=== PATIENT | female | born 1950 | race Caucasian/White ===

== ENCOUNTER 2016-09-04 07:40 | Outpatient (CLI) | payer MEDICAID ==
[~2016-09-04] VITALS: Ht 175.3 cm; Wt 72.7 kg
--- NOTE | ~2016-09-04 | HEMODYNAMI ---
PATIENT:KODY SAUCEDO MEDICAL RECORD: [id number] : 54 LOCATION:[facility] ADMISSION DATE: 09/04/16 Generatedon:09/04/20169:52 Patient name: KODY SAUCEDO Patient #: [id number] SSN: DO B: 1950 Date of study: 09/04/2016 Page: Of Hemodynamic Procedure Report Patient Data Patient Demographics Procedure consent was obtained First Name: KODY Gender: Female Last Name: SHERYL : 1950 Patient #: [id number] Age: 66 year(s) Race: Additional ID: [id number] Contact details Address: [address] [place] [address] State: [place] City: [facility] Zip code: [address] Past Medical History Allergies Allergen Reaction Date Comments Reported Other allergy 12/09/2014 codeine Admission Admission Data Admission Date: 09/04/2016 Admission Time: 7:40 Procedure Procedure Types Cath Procedure Peripheral Cath Diagnostic Procedure Cath Peripheral Gcycg-Aqbjwie-Kgz-Off Procedure Description Procedure Date Procedure Date: 09/04/2016 Procedure Start Time: 9:24 Procedure End Time: 9:52 Procedure Staff Name Function Angle Fitzgerald MD Performing Physician Chetan Esteves RT Scrub Nguyen Contreras RN Nurse Helga Jones RT Monitor Procedure Data Cath Procedure Fluoroscopy Diagnostic fluoroscopy Total fluoroscopy Time: 7.3 time: 7.3 min min Diagnostic fluoroscopy Total fluoroscopy dose: 223 dose: 223 mGy mGy Contrast Material Contrast Material Type Amount (ml) Isovue 300 68 Entry Location Entry Primary Successful Side Size Upsize 1 Upsize Entry Closure S uccessful Closure Location (Fr) (Fr) 2 (Fr) Remarks Device Remarks Femoral Left 5 Fr 6 Fr 6 Fr Left Exoseal artery Mid-Length Short Iliac occluded. Femoral Right 5 Fr Exoseal artery Estimated blood loss: 10 ml Diagnostic catheters Device Type Used For End Catheter Placement Cordis Tempo 5Fr UF Abdominal catheter aortogram with runoff Diagnostic Infinity 5Fr Lower extremity 3DRC catheter arteriography Cordis Tempo 5Fr UF Abdominal catheter aortogram with runoff Procedure Medications Medication Administration Route Dosage Oxygen NC 2 l/min Lidocaine 2% added to field 20 Heparin Flush Bag added to field 2 bags (1000units/500ml NS) Versed I.V. 1 mg Fentanyl I.V. 50 mcg Versed I.V. 1 mg Fentanyl I.V. 50 mcg Versed I.V. 1 mg Fentanyl I.V. 50 mcg Versed I.V. 1 mg Fentanyl I.V. 50 mcg Hemodynamics Rest Heart Rate: 57 (bpm) Snapshots Pre Cath Intra NCS Post Cath Vital Signs Time Heart Resp SPO2 etCO2 OK1efiq NIBP (mmHg) Rhythm Pain Sedation Rate (ipm) (%) (mmHg) (mmHg) Status Level (bpm) 9:07:18 60 17 94 0 0 169/91(126) NSR 0 (11) 10(A) , No pain 9:11:34 53 16 95 0 0 182/96(154) NSR 0 (11) 10(A) , No pain 9:15:56 54 16 99 0 0 168/94(139) NSR 0 (11) 10(A) , No pain 9:20:14 56 16 99 0 0 141/87(104) NSR 0 (11) 10(A) , No pain 9:24:28 54 16 98 0 0 120/75(94) NSR 0 (11) 10(A) , No pain 9:28:34 55 16 95 0 0 123/77(100) NSR 0 (11) 9(A) , No pain 9:32:44 59 16 96 0 0 113/66(82) NSR 0 (11) 9(A) , No pain 9:36:47 59 16 95 0 0 117/70(92) NSR 0 (11) 9(A) , No pain 9:40:55 53 17 96 0 0 117/65(83) NSR 0 (11) 9(A) , No pain 9:45:01 53 17 95 0 0 126/70(101) NSR 0 (11) 9(A) , No pain 9:49:09 51 8 94 0 0 118/72(92) NSR 0 (11) 9(A) , No pain Medications Time Medication Route Dose Verified Delivered Reason Notes Effect iveness by by 9:14:15 Oxygen NC 2 Angel Nguyen Per l/min Amilcar Contreras RN physician 9:14:24 Lidocaine 2% added 20ml Angel Ortiz used for to vial Amilcar Fitzgerald MD procedure field 9:14:32 Heparin Flush added 2 Angel Angel used for Bag to bags Amilcar Fitzgerald MD procedure (1000units/500ml field NS) 9:14:48 Versed I.V. 1 mg Angel Nguyen for Amilcar Contreras RN sedation 9:14:55 Fentanyl I.V. 50 Angel Nguyen for mcg Amilcar Contreras RN sedation 9:18:21 Versed I.V. 1 mg Angel Nguyen for Amilcar Contreras RN sedation 9:18:23 Fentanyl I.V. 50 Angel Nguyen for mcg Amilcar Contreras RN sedation 9:21:39 Versed I.V. 1 mg Angel Nguyen for Amilcar Contreras RN sedation 9:21:41 Fentanyl I.V. 50 Angel Nguyen for mcg Amilcar Contreras RN sedation 9:36:16 Versed I.V. 1 mg Angel Nguyen for Amilcar Contreras RN sedation 9:36:20 Fentanyl I.V. 50 Angel Nguyen for mcg Amilcar Contreras RN sedation Procedure Log Time Note 8:57:34 Helga Counts RT(R) sent for patient. Start room use. 8:57:35 Time tracking: Regular hours 8:57:39 Plan of Care:Hemodynamics will remain stable., Cardiac rhythm will remain stable., Comfort level will be maintained., Respiratory function will remain adequate., Patient/ family verbilizes understanding of procedure., Procedure tolerated without complication., Recovers from procedure without complications.. 9:06:04 Vital chart was started 9:06:35 Patient received from Pre/Post Procedure Room to CCL 1 Alert and oriented. Tansferred to table in Supine position. 9:06:41 Warm blankets applied, and matilde hugger turned on for patient comfort. 9:06:41 Correct patient and procedure confirmed by team. 9:06:43 Signed procedure consent form obtained from patient. 9:06:44 ECG and BP/O2 sat monitors applied to patient. 9:11:23 Baseline sample Acquired. 9:11:24 Full Disclosure recording started 9:11:31 H&P Date Dictated: 08/27/2016 Within 30 days and on chart., H&P Addendum completed by physician on day of procedure. (MUST COMPLETE FOR ALL OUTPATIENTS). 9:11:35 Pre-procedure instructions explained to patient. 9:11:35 Pre-op teaching completed and patient verbalized understanding. 9:11:37 Family in patients room. 9:11:45 Patient NPO since Midnight. 9:12:01 Is the patient allergic to Iodine/contrast media? No. 9:12:04 Is patient on blood thinner?Yes 9:12:06 ACC The patient was administered the following blood thiners within the last 24 hours: ACCPlavix 9:12:17 Patient diabetic? Yes. 9:12:21 Previous problem with sedation/anesthesia? No ? 9:12:22 Snore? Yes 9:12:23 Sleep apnea? No 9:12:24 Deviated septum? No 9:12:25 Opens mouth fully? Yes 9:12:26 Sticks out tongue? Yes 9:12:27 Airway obstruction? Yes COPD 9:12:29 Dentures? No ? 9:12:33 Pre procedure: right dorsailis pedis pulse 1+ Palpable, but thready & weak; easily obliterated 9:12:37 Pre procedure: left dorsailis pedis pulse 2+ Normal; easily identifiable; not easily obliterated 9:12:41 Patient pain scale 0/10 ?. 9:12:47 IV patent on arrival in left hand with 0.9% NaCl at KVO. 9:12:51 Lab results completed and on chart. 9:12:57 Bilateral groins area was prepped with chlora-prep and draped in sterile fashion 9:12:58 Alarms reviewed by R. N. 9:12:58 Sharps counted by scrub and verified by R.N. 9:13:00 Final Timeout: patient, procedure, and site verified with staff and physician. All members of the team are in agreement. 9:13:02 Left groin site verified by team. 9:13:12 Physical assessment completed. ASA score P 2 - A patient with mild systemic disease as per Angel Fitzgerald MD. 9:13:16 Sedation plan: IV Moderate Sedation Versed, Fentanyl 9:14:15 Oxygen 2 l/min NC was administered by Nguyen Contreras RN; Per physician; 9:14:24 Lidocaine 2% 20ml vial added to field was administered by Agnel Fitzgerald MD; used for procedure; 9:14:32 Heparin Flush Bag (1000units/500ml NS) 2 bags added to field was administered by Angel Fitzgerald MD; used for procedure; 9:14:48 Versed 1 mg I.V. was administered by Nguyen Contreras RN; for sedation; 9:14:55 Fentanyl 50 mcg I.V. was administered by Nguyen Contreras RN; for sedation; 9:15:27 If on Metformin: Last Dose? 09/02/2016 9:15:53 If diabetic: On Metformin? Yes 9:16:20 Use device set Acist 9:16:21 Acist Syringe opened to sterile field. 9:16:21 Acist Hand Control opened to sterile field. 9:16:22 Acist Manifold opened to sterile field. 9:16:59 Terumo 5Fr [place] Sheath opened to sterile field. 9:17:00 Bag Decanter opened to sterile field. 9:17:00 St Jose David 260cm J .035 wire opened to sterile field. 9:17:01 Medline Cath Pack opened to sterile field. 9:18:21 Versed 1 mg I.V. was administered by Nguyen Contreras RN; for sedation; 9:18:23 Fentanyl 50 mcg I.V. was administered by Nguyen Contreras RN; for sedation; 9:21:39 Versed 1 mg I.V. was administered by Nguyen Contreras RN; for sedation; 9:21:41 Fentanyl 50 mcg I.V. was administered by Nguyen Contreras RN; for sedation; 9:22:50 Procedure started. 9:23:12 Zero performed for pressure channel P1 9:24:44 Local anesthetic to left femerol artery with Lidocaine 2% by Angel Fitzgerald MD.INITIAL ACCESS ONLY 9:25:26 A 5 Fr sheath was inserted into the Left Femoral arteryLeft Iliac occluded. 9:25:50 A Cordis Tempo 5Fr UF catheter was advanced over the wire and used for Abdominal aortogram with runoff.Unable advance. Occluded left iliac. 9:25:57 SS glide wire advanced. 9:26:11 Terumo ANGLED SS 260CM glide wire opened to sterile field. 9:26:48 Terumo TORQUE DEVICE PLASTIC .038 opened to sterile field. 9:27:00 Catheter exchanged over wire. 9:28:10 A Diagnostic Infinity 5Fr 3DRC catheter was advanced over the wire and used for Lower extremity arteriography.Left. Left Iliac occluded 9:28:45 Catheter removed. 9:28:46 Wire removed. 9:28:52 Terumo 5Fr [place] Sheath opened to sterile field. 9:28:58 Local anesthetic to right femoral artery with Lidocaine 2% by Angel Fitzgerald MD.ADDITIONAL ACCESS 9:30:00 A 5 Fr sheath was inserted into the Right Femoral artery 9:31:28 A Cordis Tempo 5Fr UF catheter was advanced over the wire and used for Abdominal aortogram with runoff. 9:32:16 SS glide wire advanced. 9:33:54 Cordis 6Fr Brite Tip 35cm Sheath opened to sterile field. 9:34:09 Terumo 6Fr [place] Sheath opened to sterile field. 9:34:22 Wire removed. 9:34:37 SS glide via Left wire advanced. 9:35:20 Sheath upsized to a 6 Fr Mid-Length. 9:36:07 Terumo 5FR STRAIGHT 100CM glide catheter opened to sterile field. 9:36:16 Versed 1 mg I.V. was administered by Nguyen Contreras RN; for sedation; 9:36:20 Fentanyl 50 mcg I.V. was administered by Nguyen Contreras RN; for sedation; 9:36:55 Glidecatheter advanced. 9:38:08 Glidewire removed from left and advanced up right. 9:40:50 Wire removed. Intervention aborted unable to cross lesion. 9:41:49 Sheath upsized to a 6 Fr Short. 9:42:03 Sheath removed intact; hemostasis achieved with Exoseal to the Left Femoral artery. 9:42:15 Sheath removed intact; hemostasis achieved with Exoseal to the Right Femoral artery. 9:42:27 Cordis 5Fr Exoseal opened to sterile field. 9:42:32 Procedure ended.(Physican Out) 9:42:58 Tegaderm 4 x 4 opened to sterile field. 9:48:02 Fluoroscopy time 07.30 minutes. 9:48:07 Fluoroscopy dose: 223 mGy 9:48:07 Flurop Dose total: 223 9:48:10 Contrast amount:Isovue 300 68ml. 9:48:12 Sharps counted by scrub and verified by R.N. 9:48:13 Insertion/operative site no bleeding no hematoma. 9:48:16 Post-op/insertion site Right Femoral artery dressed using a 4 x 4 and Tegaderm. 9:48:19 Post-op/insertion site Left Femoral artery dressed using a 4 x 4 and Tegaderm. 9:48:22 Post right femoral artery:stable, clean and dry 9:48:28 Post left femerol artery:stable, clean and dry 9:48:32 Post Procedure Pulses reassessed and unchanged 9:48:34 Post-procedure physical assessment completed. ASA score P 2 - A patient with mild systemic disease as per Angel Fitzgerald MD. 9:48:36 Post procedure rhythm: unchanged. 9:48:39 Estimated blood loss: 10 ml 9:48:41 Post procedure instruction explained to patient.Patient verbalizes understanding. 9:48:41 Patient needs reinforcement of post procedure teaching. 9:48:52 See physician's report for complete and final results. 9:50:32 Tegaderm 4 x 4 opened to sterile field. 9:50:33 Cordis 6Fr Exoseal opened to sterile field. 9:50:49 Procedure and supply charges have been captured, reviewed, submitted and are correct. 9:50:53 Vital chart was stopped 9:50:55 Report given to Pre/Post Procedure Room. 9:50:58 Patient transfered to Pre/Post Procedure Room with Stretcher. 9:52:25 Procedure ended. 9:52:25 Full Disclosure recording stopped 9:52:27 End room use (Document Last) 9:52:28 End room use (Document Last) Device Usage Item Name Manufacture Quantity Catalog Hospital Part Current Minimal Lo t# / Number Charge Number Stock Stock Serial# Code Acist Acist 1 06424 238090 026317 [id number] 20 Syringe [employer] Inc Acist Hand Acist 1 25001 548263 090243 697770 5 Control Medical [employer] Inc Acist Acist 1 06520 175886 791993 781928 5 Manifold Medical [employer] Inc Terumo 5Fr Terumo 2 PFM378 363427 328304 922616 40 [place] Sheath Bag Microtek 1 2002S 376511 55235 000524 [address] [facility] 1 500482 457021 844558 355576 30 260cm J .035 wire Medline Cardinal 1 [id number] 642192 45071 886981 5 Cath Pack Health Cordis Cardinal 1 [id number] 060236 935461 174671 10 Tempo 5Fr Health UF catheter Terumo Terumo 1 OK2486 079694 463577 156527 [address] SS 260CM glide wire Terumo Linden 1 TD01 409367 912625 105229 5 TORQUE Scientific DEVICE PLASTIC .038 Diagnostic Cardinal 1 [id number] 693887 771156 845155 9 Infinity Health 5Fr 3DRC catheter Cordis 6Fr Cardinal 1 [id number] 157088 008992 924827 1 Brite Tip Health 35cm Sheath Terumo 6Fr Terumo 1 RLH539 412384 080245 178344 40 [place] Sheath Terumo 5FR Terumo 1 CG506 074732 12170 221916 4 STRAIGHT 100CM glide catheter Cordis 5Fr Cardinal 1 EX500 105696 581006 796739 10 Exoseal Health Tegaderm 4 3M 2 1626W 687781 749608 144383 5 x 4 Cordis 6Fr Cardinal 1 EX600 603535 123574 024392 10 Exoseal Health Signature Audit Rutledge Stage Time Signature Unsigned Intra-Procedure 09/04/2016 Helga 9:52:36 AM Counts RT(R) Signatures Monitor : Helga Signature : Counts RT Date : Time : [facility] [address] [place] [address]
[~2016-09-04 07:40] MED LIST: DESERYL100 MG PO; EFFEXOR100 MG PO; GLUCOPHAGE500 MG PO; METOPROLOL TART50 MG PO; NIFEDIPINE ER60 MG PO; PLAVIX75 MG PO; PRAVACHOL40 MG PO; PRINIVIL20 MG PO; SYNTHROID150 MCG PO; TOPROL XL50 MG PO
[2016-09-04 07:56] VITALS: BP 166/92; Ht 175.3 cm; Wt 72.7 kg
[2016-09-04 08:14] LABS: BASOPHILS 0.8 % (0.0-2.0); EOSINOPHILS 4.8 % (0-7); HEMATOCRIT 41.2 % (36.0-48.0); HEMOGLOBIN 13.7 g/dL (12-16); MCH 29.8 pg (26.0-34.0); MCHC 33.3 g/dL (31.0-37.0); MCV 89.8 fL (80.0-100.0); MEAN PLATELET VOLUME 10.6 fL (7.4-10.4); MONOCYTES 9.1 % (2-11); NEUTROPHILS 58.3 % (40-80); PLATELET COUNT 317 10x3/uL (130-400); RBC 4.59 10x6/uL (4.00-5.40); RDW 15.9 % (11.5-14.5); WBC 9.8 10x3/uL (4.8-10.8)
[2016-09-04 08:38] LABS: CALC OSMOLALITY 280 mosm/kg (275-300); CALCIUM 9.4 mg/dL (8.5-10.1); CARBON DIOXIDE 23.9 mmol/L (21.0-32.0); CHLORIDE - SERUM 103 mmol/L (98-107); CREATININE - SERUM 0.8 mg/dL (0.6-1.3); GLUCOSE 167 mg/dL (74-106); POTASSIUM - SERUM 4.4 mmol/L (3.5-5.1); SODIUM 139 mmol/L (136-145); UREA NITROGEN 11 mg/dL (7-18); eGFR NON AFRICAN AMERICAN 76 mL/min (90-120)
--- NOTE | 2016-09-04 10:15 | NUR ---
RESTING IN BED WITH EYES CLOSED. VSS. ROOM AIR, NO RESP DISTRESS NOTED. RIGHT AND LEFT GROIN DRSG CDI, NO BLEEDING OR HEMATOMA NOTED. INSTRUCTED PT TO KEEP HEAD FLAT ON PILLOW AND BOTH LEGS STRAIGHT.
--- NOTE | 2016-09-04 10:45 | NUR ---
RESTING QUIETLY. NO C/O AT THIS TIME. VITAL SIGNS STABLE. BILATERAL GROIN DRSGS CDI. DAUGHTER AT BEDSIDE, CALL LIGHT WITHIN REACH.
--- NOTE | 2016-09-04 11:00 | NUR ---
WATER GIVEN, NO C/O NAUSEA OR CHEST PAIN. VSS. BILATERAL GROINS CDI. WILL CONTINUE TO MONITOR.
--- NOTE | 2016-09-04 11:30 | NUR ---
SANDWICH TRAY GIVEN. NO C/O AT THIS TIME. WILL CONTINUE TO MONITOR.
--- NOTE | 2016-09-04 12:40 | NUR ---
LEFT FA PIV D/C'D WITH CATHETER INTACT. UP TO GET DRESSED.
--- NOTE | 2016-09-04 13:00 | NUR ---
DISCHARGE INSTRUCTIONS GIVEN, VERBALIZED UNDERSTANDING. UP TO RESTROOM TO VOID.
--- NOTE | 2016-09-04 13:16 | NUR ---
TAKEN OUT VIA WHEELCHAIR BY CATH DIESEL LOCOMOTIVE ENGINEER. LEFT FACILITY WITH FAMILY MEMBER AND ALL PERSONAL BELONGINGS.
--- NOTE | 2016-09-10 14:38 | OP ---
PATIENT NAME: KODY SAUCEDO MEDICAL RECORD: [id number] :54 LOCATION:D.CAT ADMISSION DATE: SURGEON: CARMELA GAUTAM MD DATE OF OPERATION: 09/04/2016 PROCEDURES: 1. Aortofemoral runoff. 2. Abdominal aortography. INDICATIONS: Claudication and peripheral vascular disease. PROCEDURE IN DETAIL: After informed consent was obtained and after detailed explanation of risks, benefits as well as alternative therapies, the patient elected to proceed with angiogram. The right and left femoral areas were prepped and draped in normal sterile fashion. Both arteries were cannulated via modified Seldinger technique with placement of 5 and 6-Greenlandic sheath. All catheters exchanged through these sheaths. FINDINGS: The abdominal aortography was performed. The catheter was pulled down for aortofemoral runoff. Abdominal aortography reveals wide patency of the previously placed renal stent. No renal artery stenosis. On the left renal artery, there is an abdominal aortic aneurysm that is infrarenal aneurysm, appears to be greater than 4 cm. This will be better delineated by CT or ultrasound. RIGHT SIDE: 1. The common internal and external iliacs have mild irregularities, but no flow-limiting stenosis. 2. Femoral system: The common superficial and deep femoral have mild irregularities, but no flow-limiting stenosis. 3. Popliteal and infrapopliteal vessels are widely patent giving good 3-vessel runoff to the foot. LEFT SIDE: 1. The left common iliac is totally occluded. The external iliac is widely patent. The internal iliac is widely patent. 2. Femoral system: The common superficial and deep femoral have mild irregularities, but no flow-limiting stenosis. 3. Popliteal and infrapopliteal vessels are widely patent. Attempted LOZENGE MAKER of the left iliac, no wire, glide, catheter combination with calcified total occlusion of the left iliac. OVERALL IMPRESSION: Total occlusion of the left iliac, inability to cross with a wire for transcatheter revascularization. Continue medical management of the peripheral vascular disease and peripheral risk factors. If the patient wishes revascularization, this will have to be surgical. TRANSINT:[id number] Voice Confirmation ID: [id number] DOCUMENT ID: [id number] OPERATIVE REPORT [id number] KODY SAUCEDO CARMELA GAUTAM MD at 1438 CC: [id number] DICTATION DATE: 09/04/16 0947 PEGA DEVELOPER: 09/04/16 1021 DEP CLI 09/04/16 [facility] [address] [place] [address]
== END 2016-09-04 13:15 | disposition home or self-care (01) ==
LOC: D.CATH 07:40
PROVIDERS: Internal Medicine Interventional Cardiology
DX: I70.212 Atherosclerosis of native arteries of extremities with intermittent claudication, left leg (principal); I70.92 Chronic total occlusion of artery of the extremities; I72.2 Aneurysm of renal artery

== ENCOUNTER → 2016-09-20 08:23 | Outpatient (CLI) | payer MEDICAID ==
[2016-09-04 07:56] VITALS: BMI 23.6
== END | disposition home or self-care (01) ==
LOC: D.CT 08:23
DX: I71.4 Abdominal aortic aneurysm, without rupture (principal)

== ENCOUNTER → 2016-10-17 13:27 | Outpatient (CLI) | payer MEDICAID ==
[2016-09-04 07:56] VITALS: BMI 23.6
== END | disposition home or self-care (01) ==
LOC: D.RT 13:27
DX: I65.23 Occlusion and stenosis of bilateral carotid arteries (principal); R06.02 Shortness of breath

== ENCOUNTER 2016-10-25 05:00 | Inpatient (IN) | payer MEDICAID ==
[2016-10-24 11:00] LABS: BASOPHILS 1.1 % (0-2); EOSINOPHILS 3.3 % (0-7); HEMATOCRIT 41.5 % (36.0-48.0); HEMOGLOBIN 13.5 g/dL (12-16); IMMATURE GRANULOCYTES 0.7 % (0-5); LYMPHOCYTES 23.2 % (15-50); MCH 29.7 pg (26.0-34.0); MCHC 32.5 g/dL (31.0-37.0); MCV 91.4 fL (80.0-100.0); MEAN PLATELET VOLUME 10.5 fL (7.4-10.4); MONOCYTES 7.4 % (2-11); NEUTROPHILS 64.3 % (40-80); PLATELET COUNT 357 10x3/uL (130-400); RBC 4.54 10x6/uL (4.00-5.40); RDW 14.3 % (11.5-14.5); WBC 10.7 10x3/uL (4.8-10.8)
[2016-10-24 11:08] LABS: APTT 29.9 SECONDS (22.8-39.4); INR 0.91 (0.85-1.17); PROTIME 12.1 SECONDS (11.6-15.0)
[2016-10-24 11:11] LABS: APPEARANCE HAZY (CLEAR); BILIRUBIN NEGATIVE (NEGATIVE); COLOR YELLOW (YELLOW); GLUCOSE 50 mg/dL (NEGATIVE); KETONE NEGATIVE (NEGATIVE); LEUKOCYTE ESTERASE TRACE (NEGATIVE); NITRITE NEGATIVE (NEGATIVE); PROTEIN TRACE mg/dL (NEGATIVE); UROBILINOGEN NORMAL (NORMAL)
[2016-10-24 11:12] LABS: BACTERIA FEW /hpf (NONE SEEN); EPITHELIAL CELLS 0-5 /hpf (0-5); RED CELLS - URINE 0-5 /hpf (0-5); WHITE CELLS - URINE 0-5 /hpf (0-5)
[2016-10-24 11:16] LABS: ALBUMIN 3.3 g/dL (3.4-5.0); ANION GAP 11.4 mmol/L (8-16); BILIRUBIN - TOTAL 0.18 mg/dL (0.2-1.3); CALCIUM 9.3 mg/dL (8.5-10.1); CARBON DIOXIDE 29.8 mmol/L (21.0-32.0); CREATININE - SERUM 0.9 mg/dL (0.6-1.3); POTASSIUM - SERUM 3.2 mmol/L (3.5-5.1); PROTEIN - SERUM 7.4 g/dL (6.4-8.2)
[2016-10-25] VITALS (48 sets, daily range): BP systolic 119–155; BP diastolic 60–82; BMI 24.5; BMI 25.9
[~2016-10-25] VITALS: Ht 172.7 cm; Wt 78.3 kg
[~2016-10-25 05:00] MED LIST changes: +EFFEXOR XR150 MG PO; -EFFEXOR100 MG PO; +PROTONIX40 MG PO
[2016-10-25] MEDS ORDERED: INHALER (05:42)
--- NOTE | 2016-10-25 12:23 | NUR ---
RECIEVED TO ROOM CV06 VIA BED. ALERT C/O BLADDER PAIN. LEFT SUBCLAVIAN CVL WITH NITRO INFUSING AT 10 CC AND BICARB DRIP AT 150 CC. CRITICORE BASHIR WITH DARK URINE NOTED. BILATERAL GROIN DRESSINGS CLEAN DRY AND INTACT. PEDAL PULSES PRESENT. PT DAUGHTER AT BEDSIDE. ALL QUESTIONS ANSWERED PER DR. GARCIA. B/O SUPPOSITORY ORDERED.
--- NOTE | 2016-10-25 12:36 | NUR ---
B/O SUPPOSITORY PER ORDER.
[2016-10-25 13:33] LABS: POTASSIUM - SERUM 2.7 mmol/L (3.5-5.1)
--- NOTE | 2016-10-25 16:34 | NUR ---
ASSISTED PT WITH MEAL.
--- NOTE | 2016-10-25 19:15 | NUR ---
REPORT RECVD. CARE ASSUMED. INITIAL ASSMNT COMPLETED. SEE FLOWSHEET FOR ALL FINDINGS. AWAKE AND AOX4. PERRLA. MAEW. FOLLOWS COMMANDS. RESP SHALLOW. OCC PROD COUGH. SCANT WHEEZES. DIM IN BASES PER AUSC OF LUNG CARO, SPO2 97% ON O2 AT 2 LPM NC. FAIR EFFORT WITH INCENTIVE. SR ON THE MONITOR. LEFT RADIAL A-LINE ZEROED AND BALANCED. GOOD WAVE FORM SEEN. FYPERTENSIVE.NITRO GTT TITRATION AT MAX. CLEVIPREX GTT TITRATION INITIATED. SYS B/P WITHIN PARAMETERS ON CLEVIPREX. NTG GTT DISCONTINUED. BILATERAL GROIN SITES CDI. SOFT. NO HEMATOMA PRESENT. PEDAL PULSES PALP. DENIES DISCOMFORT. ABD SOFT, BSA X4. TOLERATING REG DIABETIC DIET AND PO FLUIDS. F/C PATENT WITH CHRISTINE UOP TO CRITICORE. AFEBRILE. ASSISTED TO REPOSITION FOR COMFORT. HOB UP. C/L IN REACH. CONT CURRENT POC.
--- NOTE | 2016-10-25 21:25 | NUR ---
S MEDS GIVEN,. HS SNACK PROVIDED. VSS. CLEVIPREX GTT TITRATION IN PROGRESS FOR HTN., FAMILY AT BEDSIDE. UPDATE GIVEN. NO DISTRESS SEEN. HOB UP. C/L IN REACH. CONT CURRENT POC.
--- NOTE | 2016-10-25 22:30 | NUR ---
ABGS DRAWN AND RESULTED. CA+ LEVEL TREATED PER ORDERS.
--- NOTE | 2016-10-25 23:15 | NUR ---
REASSESSMENT COMPLETED. SEE FLOWSHEET FOR ALL FINDINGS. AWAKE AND AOX4. PERRLA. MAEW. FOLLOWS COMMANDS. RESP SHALLOW. OCC PROD COUGH. SCANT WHEEZES. DIM IN BASES PER AUSC OF LUNG CARO, SPO2 97% ON O2 AT 2 LPM NC. FAIR EFFORT WITH INCENTIVE. SR ON THE MONITOR. LEFT RADIAL A-LINE INTACT WITH GOOD WAVE FORM SEEN. CLEVIPREX GTT TITRATION IN USE. SYS B/P WITHIN PARAMETERS BILATERAL GROIN SITES CDI. SOFT. NO HEMATOMA. PEDAL PULSES PALP. DENIES DISCOMFORT. ABD SOFT, BSA X4. TOLERATING REG DIABETIC DIET AND PO FLUIDS. F/C PATENT WITH CHRISTINE UOP TO CRITICORE. AFEBRILE. ASSISTED TO REPOSITION FOR COMFORT. HOB UP. C/L IN REACH. CONT CURRENT POC.
[2016-10-26] VITALS (36 sets, daily range): BP systolic 118–157; BP diastolic 54–94; Ht 172.7 cm; Wt 78.3 kg
--- NOTE | 2016-10-26 01:10 | NUR ---
RESTING WITH NO DISTRESS. VSS. SR ON THE MONITOR. DENIES NEEDS. HOB UP. C/L IN REACH. CONT CURRENT POC.
--- NOTE | 2016-10-26 03:15 | NUR ---
REASSESSMENT COMPLETED. SEE FLOWSHEET FOR ALL FINDINGS. RESTING. AOX4. PERRLA. MAEW. FOLLOWS COMMANDS. RESP SHALLOW. OCC PROD COUGH. SCANT WHEEZES. DIM IN BASES PER AUSC OF LUNG CARO, SPO2 97% ON O2 AT 2 LPM NC. FAIR EFFORT WITH INCENTIVE. SR ON THE MONITOR. LEFT RADIAL A-LINE INTACT WITH GOOD WAVE FORM SEEN. SYS B/P WITHIN PARAMETERS BILATERAL GROIN SITES CDI. SOFT. NO HEMATOMA. PEDAL PULSES PALP. DENIES DISCOMFORT. ABD SOFT, BSA X4. TOLERATING REG DIABETIC DIET AND PO FLUIDS. F/C PATENT WITH CHRISTINE UOP TO CRITICORE. AFEBRILE. ASSISTED TO REPOSITION FOR COMFORT. HOB UP. C/L IN REACH. CONT CURRENT POC.
--- NOTE | 2016-10-26 05:20 | NUR ---
RESTING WITH NO DISTRESS. VSS. SR ON THE MONITOR. DENIES DISCOMFORT. ASSISTED TO REPOSITION. SYS B/P WITHIN PARAMETERS. HOB UP. C/L IN REACH. CONT CURRENT POC.
[2016-10-26 06:23] LABS: MCH 29.4 pg (26.0-34.0); MCHC 32.4 g/dL (31.0-37.0); MCV 90.8 fL (80.0-100.0); MEAN PLATELET VOLUME 10.6 fL (7.4-10.4); RDW 14.2 % (11.5-14.5); WBC 8.7 10x3/uL (4.8-10.8)
[2016-10-26 06:28] LABS: HEMATOCRIT 29.6 % (36.0-48.0); HEMOGLOBIN 9.6 g/dL (12-16); RBC 3.26 10x6/uL (4.00-5.40)
[2016-10-26 06:31] LABS: ANION GAP 8.2 mmol/L (8-16); CALCIUM 7.6 mg/dL (8.5-10.1); CARBON DIOXIDE 28.8 mmol/L (21.0-32.0); CREATININE - SERUM 1.1 mg/dL (0.6-1.3)
--- NOTE | 2016-10-26 11:29 | OP ---
PATIENT NAME: KODY SAUCEDO MEDICAL RECORD: [id number] :54 LOCATION:D.TONY DDeliaCV06 ADMISSION DATE:10/25/16 SURGEON: KRIS GARCIA MD DATE OF OPERATION: 10/25/2016 SURGEON: Kris Garcia MD ANESTHESIA: General, Dr. Daley. OPERATION PERFORMED: 1. Endovascular stent repair of abdominal aortic aneurysm and right iliac artery aneurysm. 2. Femoral-femoral bypass. 1. Open femoral exposure bilaterally, 25019-26 Catheter sheath placement into the aorta, nonselective, 20349. 2. Endo AAA repair with AUI device 54125. Rad S&I, subtended at Endo AAA repair, 02549-19. 3. Extension prosthesis initial vessel, 47360 subtended at Rad S&I extension prosthesis, 69499-32. 4. Femoral-femoral bypass utilizing a 6-mm prosthetic graft, 88394. PREOPERATIVE DIAGNOSIS: Abdominal aortic aneurysm. Thoracic aortic aneurysm. 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 POSTOPERATIVE DIAGNOSIS: Abdominal aortic aneurysm. Thoracic aortic aneurysm. 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 INDICATION FOR OPERATION: Severe claudication, left lower extremity. FINDINGS OF THE OPERATION: Fluoro time was 6 minutes 30 seconds contrast was 90mL. Aortogram demonstrates a bilobed abdominal aortic aneurysm as well as right common iliac artery aneurysm. There is total excision of the left common iliac artery. Post-endovascular stent repair demonstrates good exclusion of the aneurysm. DESCRIPTION OF PROCEDURE: After informed consent, adequate preoperative medication evaluation, the patient was brought to the operating room, placed on the table in the supine position. After induction of general endotracheal anesthesia and application of appropriate monitoring devices, the chest, abdomen and both groins and legs were prepped and draped in a sterile field, utilizing Betadine scrub, alcohol, and Betadine solution. A Betadine-impregnated drape was also used. A curvilinear incision was made over the superficial femoral, common femoral and the inguinal ligament and dissection carried down the fascia. Hemostasis maintained with electrocautery. The inguinal ligament was elevated and the preperitoneal space dissected and dissection was then carried out along the common femoral artery, superficial femoral artery and profunda femoral artery. These were surrounded with vessel loops. Attention was then turned toward the right side. An oblique incision was made above the inguinal ligament. Dissection carried down the fascia. Hemostasis maintained with electrocautery. The inguinal ligament was elevated and the common femorals and distal external iliac artery were dissected free of surrounding structures. The patient was given a calculated dose of heparin utilizing a micropuncture OPERATIVE REPORT [id number] KODY SAUCEDO technique. The distal iliac artery was punctured and a 4-Austrian sheath placed was exchanged for a 5-Austrian sheath. A pigtail catheter was then placed in the aorta at the renal arteries and then aortogram was obtained and measurements made and exchange was then made for a stiff wire and exchange made for the AUI device. The renal arteries were identified and the device was deployed just below the renal arteries and the suprarenal fixation released. Attention was then turned toward the external iliac and hypogastric arteries and an aortogram demonstrated the bifurcation utilizing an extension of the device was placed in the AUI device and extended to the bifurcation of the hypogastric and external iliac arteries. A Reliant balloon was then used to dilate the graft and conformed to the vessel. An aortogram was performed that demonstrated good position of the graft. Good inflow to the right groin without type 1 endoleaks. The wires, sheaths and catheters were removed. The ACT was maintained above 200 seconds. A 6 mm graft was placed through the preperitoneal space and retrorectus muscle position. The puncture site for the aneurysm repair was then extended distally and the 6 mm graft oblique to perform a 2-1/2cm anastomosis. The left side was then isolated and the superficial femoral artery was opened and the arteriotomy extended on to the common femoral artery utilizing the Lawrence scissors. There was open flow to the profunda and superficial femoral arteries. An end-to-side anastomosis was fashioned utilizing running 6-0 Prolene suture. All maneuvers removed, trapped air was performed. The clamps were removed sequentially. There was excellent flow through all 4 distal vessels in the distal left iliac artery was ligated above the femoral-femoral graft to prevent retrograde perfusion of the aneurysm sac. The patient was then given a calculated dose of protamine. Hemostasis was achieved. The wounds were irrigated with copious amounts of antibiotic solution and normal saline. Instrument counts and sponge counts were correct times 2. The wound was closed in layers utilizing 2-0 Vicryl on deep subcutaneous tissue and 3-0 Vicryl on superficial subcutaneous tissue and skin approximated with skin harvinder. Sterile dressings were applied. The patient tolerated the procedure well and was transferred to cardiovascular recovery in satisfactory condition. TRANSINT:[id number] Voice Confirmation ID: [id number] DOCUMENT ID: [id number] KRIS GARCIA MD at 1129 CC: [id number] DICTATION DATE: 10/25/16 1144 MOLECULAR SPECTROSCOPIST: 10/26/16 0007 ADM IN [id number] [place] [address]
--- NOTE | 2016-10-26 11:30 | NUR ---
BASHIR CATH AND A-LINE DC'D PER ORDER. MANUAL PRESSURE APPLIED TO LEFT RADIAL TIMES 10 MINUTES. CLEAR DRESSING APPLIED. PT INSTRUCTED TO REPORT S/SX OF BLEEDING OR SWELLING. P.T. AT BEDSIDE FOR EVAL.
--- NOTE | 2016-10-26 12:15 | NUR ---
PT VOIDED POST BASHIR DC.
--- NOTE | 2016-10-26 13:10 | NUR ---
SET UP FOR BATH. CLEAN LINENS PROVIDED.
--- NOTE | 2016-10-26 16:10 | NUR ---
BACK TO BED.
--- NOTE | 2016-10-26 17:06 | NUR ---
UP TO CHAIR FOR DINNER.
--- NOTE | 2016-10-26 19:15 | NUR ---
REPORT RECVD. CARE ASSUMED. INITIAL ASSMNT COMPLETED. SEE FLOWSHEET FOR ALL FINDINGS. AWAKE AND AOX4. VSS. RESP EVEN AND UNLABORED. LUNGS WITH SCANT EXP WHEEZES. DIM IN BASES. OCC PROD COUGH NOTED. PULLS 1500 ON INCENTIVE WITH GOOD EFFORT SEEN. SR ON THE MONITOR. ALL PERIPHERAL PULSES PALP. RIGHT AND LEFT GROIN SITES CDI. SOFT WITH NO HEMATOMA. DENIES DISCOMFORT. ABD SOFT, BSA X4. VOIDING NO DIFF. UP TO BATHROOM WITH ASSIST TO DISCONNECT FROM ICU MONITORING ONLY. INDEPENDENT WITH CARES AND REPOSITIONING. PO FLUIDS AND SNACKS PROVIDED. HOB UP. C/L IN REACH. CONT CURRENT POC.
--- NOTE | 2016-10-26 21:15 | NUR ---
HS MEDS GIVEN. FSBS WITH SLIDING SCALE INSULIN SQ. UP TO BR TO VOID NO DIFF. VSS. PRN PAIN MED PROVIDED. HOB UP. C/L IN REACH. CONT CURRENT POC.
--- NOTE | 2016-10-26 23:15 | NUR ---
REASSESSMENT COMPLETED. SEE FLOWSHEET FOR ALL FINDINGS. RESTING. AOX4. VSS. RESP EVEN AND UNLABORED. LUNGS WITH SCANT EXP WHEEZES. DIM IN BASES. OCC PROD COUGH NOTED. PULLS 1500 ON INCENTIVE WITH G EFFORT SEEN. SR ON THE MONITOR. ALL PERIPHERAL PULSES PALP. RIGHT AND LEFT GROIN SITES CDI. SOFT WITH NO HEMATOMA. DENIES DISCOMFORT. ABD SOFT, BSA X4 VOIDING NO DIFF. UP TO BATHROOM WITH ASSIST TO DISCONNECT FROM ICU MONITORI ONLY. INDEPENDENT WITH CARES AND REPOSITIONING. PO FLUIDS AND SNACKS PROVIDED. HOB UP. C/L IN REACH. CONT CURRENT POC.
[2016-10-27] VITALS (13 sets, daily range): BP systolic 118–161; BP diastolic 51–85
--- NOTE | 2016-10-27 01:10 | NUR ---
RESTING WITH NO DUSTRESS. VSS. SR ON THE MONITOR. HOB UP. C/L IN REACH. CONT CURRENT POC.
--- NOTE | 2016-10-27 02:14 | NUR ---
UP TO BATHROOM MINIMAL ASSIST. VOIDED NO DIFF. BACK TO BED.POSITIONED SELF FOR COMFORT. PRN NORCO GIVEN FOR PAIN CONTROL. HOB UP. C/L IN REACH. CONT CURRENT POC.
--- NOTE | 2016-10-27 05:11 | NUR ---
RESTING WITH EYES CLOSED. NO DISTRESS. VSS. SR ON THE MONITOR. SYS B/P WITHIN PARAMETERS. NO NEEDS VOICED. HOB UP. C/L IN REACH. CONT POC.
[2016-10-27 06:19] LABS: BASOPHILS 0.4 % (0-2); EOSINOPHILS 1.7 % (0-7); HEMATOCRIT 29.5 % (36.0-48.0); HEMOGLOBIN 9.6 g/dL (12-16); IMMATURE GRANULOCYTES 0.5 % (0-5); LYMPHOCYTES 15.1 % (15-50); MCH 29.4 pg (26.0-34.0); MCHC 32.5 g/dL (31.0-37.0); MCV 90.5 fL (80.0-100.0); MEAN PLATELET VOLUME 10.5 fL (7.4-10.4); MONOCYTES 10.9 % (2-11); NEUTROPHILS 71.4 % (40-80); PLATELET COUNT 228 10x3/uL (130-400); RBC 3.26 10x6/uL (4.00-5.40); RDW 14.1 % (11.5-14.5); WBC 10.4 10x3/uL (4.8-10.8)
[2016-10-27 06:33] LABS: ANION GAP 7.2 mmol/L (8-16); CALCIUM 8.1 mg/dL (8.5-10.1); CARBON DIOXIDE 30.5 mmol/L (21.0-32.0); CREATININE - SERUM 0.9 mg/dL (0.6-1.3)
[2016-10-27 06:35] LABS: POTASSIUM - SERUM 2.7 mmol/L (3.5-5.1)
--- NOTE | 2016-10-27 07:12 | NUR ---
REPORTED K+ LEVEL TO DR GARCIA. ORDERS RECVD FOR 40 MEQ KCL RIDER OVER 4 HOURS AND START PO 20 MEQ K+ BID. REPORTED TO ONCOMING RN.
[2016-10-27] MEDS ORDERED: HYDROCODONE-APA1 TAB PO (13:36)
--- NOTE | 2016-10-27 14:30 | NUR ---
CV[facility] DC'D CATH FULLY INTACT PER ORDER. MANUAL PRESSURE APPLIED TIMES 5 MINUTES. CLEAR DRESSING APPLIED. PT INSTRUCTED TO CALL FOR BLEEDING OR SWELLING. PT INSTRUCTED TO REMAIN FLAT UNTIL FURTHER INSTRUCTION.
--- NOTE | 2016-10-27 14:55 | NUR ---
NO BLEEDING OR SWELLING NOTED. DC INSTRUCTIONS REVIEWED WITH PT. NO CURRENT QUESTIONS. AWAITING RIDE HOME FOR CLOTHES TO DC.
--- NOTE | 2016-10-27 16:50 | NUR ---
REVIEWED DC INSTRUCTIONS WITH PT AGAIN. VERBALIZES UNDERSTANDING. NO QUESTIONS. PT DC'D HOME WITH DAUGHTER AND WRITTEN RX.
== END 2016-10-27 16:50 | disposition home or self-care (01) | DRG 269 ==
LOC: D.CVICU 05:00 → D.SDCHOLD 05:00 → D.CVICU 11:09
PROVIDERS: Anesthesiology; Emergency Medicine; ADMIT Internal Medicine Cardiovascular Disease
PROC: 041L4ZJ Bypass Left Femoral Artery to Left Femoral Artery, Percutaneous Endoscopic Approach (ICD-10-PCS; 2016-10-25)
PROC: 04V03DZ Restriction of Abdominal Aorta with Intraluminal Device, Percutaneous Approach (ICD-10-PCS; principal; 2016-10-25 07:30)
PROC: 04VC3DZ Restriction of Right Common Iliac Artery with Intraluminal Device, Percutaneous Approach (ICD-10-PCS; 2016-10-25 07:30)
DX: I71.4 Abdominal aortic aneurysm, without rupture (principal); I74.5 Embolism and thrombosis of iliac artery; I73.9 Peripheral vascular disease, unspecified; E11.9 Type 2 diabetes mellitus without complications; I25.10 Atherosclerotic heart disease of native coronary artery without angina pectoris; I72.3 Aneurysm of iliac artery; J44.9 Chronic obstructive pulmonary disease, unspecified; I71.2 Thoracic aortic aneurysm, without rupture

== ENCOUNTER → 2017-10-27 12:07 | Outpatient (CLI) | payer MEDICARE, MEDICAID ==
[2016-10-26 10:22] VITALS: BMI 27.0
[~2017-10-27 12:07] MED LIST changes: +HYDROCODONE-APA1 TAB PO; +INHALER
== END | disposition home or self-care (01) ==
LOC: D.CT 12:07
DX: I71.4 Abdominal aortic aneurysm, without rupture (principal)

== ENCOUNTER → 2017-12-09 09:34 | Outpatient (CLI) | payer MEDICARE, MEDICAID ==
[2016-10-26 10:22] VITALS: BMI 27.0
[~2017-12-09 09:34] MED LIST changes: +ASPIRIN81 MG PO; +DULERA 200 MCG8.8 GM INH; +EFFEXOR37.5 MG PO
== END | disposition home or self-care (01) ==
LOC: D.CT 09:34
DX: I71.2 Thoracic aortic aneurysm, without rupture (principal)

== ENCOUNTER 2018-01-06 05:07 | Day surgery (SDC) | payer MEDICARE, MEDICAID ==
[2018-01-05 10:13] LABS: HEMATOCRIT 37.5 % (36.0-48.0); HEMOGLOBIN 12.2 g/dL (12-16); MCH 29.3 pg (26.0-34.0); MCHC 32.5 g/dL (31.0-37.0); MCV 89.9 fL (80.0-100.0); RBC 4.17 10x6/uL (4.00-5.40); RDW 14.6 % (11.5-14.5); WBC 9.6 10x3/uL (4.8-10.8)
[2018-01-05 10:24] LABS: APTT 31.3 SECONDS (22.8-39.4); INR 0.93 (0.85-1.17); PROTIME 12.1 SECONDS (11.6-15.0)
[2018-01-05 11:06] LABS: ALBUMIN 3.7 g/dL (3.4-5.0); ANION GAP 13.7 mmol/L (8-16); BILIRUBIN - TOTAL 0.28 mg/dL (0.2-1.3); CALCIUM 9.4 mg/dL (8.5-10.1); CARBON DIOXIDE 28.6 mmol/L (21.0-32.0); CREATININE - SERUM 0.9 mg/dL (0.6-1.3); POTASSIUM - SERUM 3.3 mmol/L (3.5-5.1); PROTEIN - SERUM 7.6 g/dL (6.4-8.2)
[2018-01-05 11:10] LABS: APPEARANCE CLEAR (CLEAR); BILIRUBIN NEGATIVE (NEGATIVE); COLOR YELLOW (YELLOW); GLUCOSE NEGATIVE (NEGATIVE); KETONE NEGATIVE (NEGATIVE); NITRITE NEGATIVE (NEGATIVE); PROTEIN NEGATIVE (NEGATIVE); UROBILINOGEN NORMAL (NORMAL)
[2018-01-05 11:11] LABS: BACTERIA MODERATE /hpf (NONE SEEN); EPITHELIAL CELLS 0-5 /hpf (0-5); MUCUS <1+ /lpf (NONE SEEN); WHITE CELLS - URINE 0-5 /hpf (0-5)
[~2018-01-06] VITALS: Ht 172.7 cm; Wt 75.0 kg
[2018-01-06] VITALS (31 sets, daily range): BP systolic 107–163; BP diastolic 57–91; Ht 172.7 cm; Wt 75.0 kg
--- NOTE | ~2018-01-06 | OP ---
PATIENT NAME: KODY SAUCEDO MEDICAL RECORD: [id number] :54 LOCATION:D.[facility]ERLY [facility] ADMISSION DATE: SURGEON: OTIS RIVERA MD DATE OF OPERATION: 01/06/2018 SURGEON: Otis Rivera MD ANESTHESIA: General, Dr. Daley. OPERATION PERFORMED: Angioplasty and stenting of the right external iliac artery. PREOPERATIVE DIAGNOSIS: Severe right external iliac artery stenosis. POSTOPERATIVE DIAGNOSIS: Severe right external iliac artery stenosis. INDICATION FOR OPERATION: Right external iliac artery stenosis supplying the right lower extremity and left lower extremity via a femoral-femoral bypass. FINDINGS AT OPERATION: Utilizing ultrasound imaging, the right external iliac artery and common femoral artery were identified with the graft leading off to the left femoral artery. Right external iliac arteriogram demonstrates severe stenosis at the takeoff of the right external iliac artery. ESTIMATED BLOOD LOSS: Less than 10 mL. FLUOROSCOPY TIME: 2 minutes. CONTRAST: 20 mL. DESCRIPTION OF PROCEDURE: After informed consent, adequate preoperative medication evaluation, the patient was brought to the operating room, placed on the table in the supine position. After induction of general endotracheal anesthesia and application of appropriate monitoring devices, the abdomen and both legs were prepped and draped in sterile field, utilizing Betadine scrub, alcohol, and Betadine solution. Betadine-impregnated drape was also used. Utilizing the Doppler ultrasound, the right external iliac, common femoral, and femoral-femoral graft were visualized as well as the left common femoral artery. Utilizing the ultrasound, a direct puncture was made of the right common femoral and external iliac junction. Utilizing a micropuncture technique, wire confirmation was made. Utilizing fluoroscopy, exchange was made for a 5-Marshallese sheath. The patient was given a calculated dose of heparin. The exchange made for a 5-Marshallese sheath. A retrograde external arteriogram was performed, demonstrating the severe stenosis at the takeoff of the external iliac artery. An Amplatz wire was placed in the thoracic aorta and exchange made for a 7-Marshallese sheath. An iCast Atrium covered stent was then maneuvered into position just distal to the hypogastric artery and the balloon expandable stent deployed. The catheter was removed. A repeat arteriogram demonstrated excellent flow through this area with good flow and no residual stenosis. The wires and catheters were removed and an 8-Marshallese Angio-Seal was then deployed in the right groin, which was not completely hemostatic. The patient was given a calculated dose of heparin and manual pressure held for 22 minutes. A FemoStop was then placed at a low inflation rate. The patient tolerated the procedure OPERATIVE REPORT [id number] KODY SAUCEDO well and was transferred to the CV ICU in satisfactory condition. TRANSINT:[id number] Voice Confirmation ID: [id number] DOCUMENT ID: [id number] OTIS RIVERA MD at 1256 CC: [id number] DICTATION DATE: 01/06/18 0945 EAR FLAP BINDER: 01/06/18 1238 [facility] 01/07/18 [id number] [place] [address]
--- NOTE | ~2018-01-06 | HP ---
PATIENT: KODY SAUCEDO MEDICAL RECORD: [id number] ACCOUNT: [id number] LOCATION:M[place]IE : 52 ADMISSION DATE: 01/06/18 HISTORY AND PHYSICAL EXAMINATION NameKODY SAUCEDO (67yo, F) ID# [id number]. Date/Time12/11/2017 11:88VLCZA1952Service Dept.NPP_[place] [facility] ClinicProviderEDELIZABETH GARCIA MDInsuranceMed Primary: [facility] (MEDICARE REPLACEMENT/ADVANTAGE - PPO) Insurance # : [id number] Employer Name : [employer] Secondary: [place] Insurance # : [id number] Employer Name : UNKNOWN Prescription: [employer] - Member is eligible. Prescription: ORX - Member is eligible. Chief Complaint Followup: Iliac artery occlusion S/P EVS AAA, R ILIAC ANEURYSM; FEM-FEM BYPASS 10/25/16 6 WEEK WITH CTA THORACIC AORTA Patient's Pharmacies [facility] ([facility]): [address], [place] [address], , Vitals BP:138/74 sitting R arm 12/11/2017 12:11 pmHR:72/REG 12/11/2017 12:12 pmHt:5 ft 8 in 12/11/2017 12:08 pmWt:164 lbs 12/11/2017 12:10 pmBMI:24.9 12/11/2017 12:10 pmAllergies Reviewed Allergies NKDAMedications Reviewed Medications amoxicillin 500 mg /16/18 filledPRESCRIPTION SOLUTIONSARIPiprazole 5 mg tablet Take 1 tablet(s) every day by oral route.10/09/16 enteredKathy Wilsonazithromycin 250 mg sfrrin20/14/16 filledCaremarkchlorhexidine gluconate 0.12 % nxcnaibaj08/16/18 filledPRESCRIPTION SOLUTIONSclopidogrel 75 mg tablet Take 1 tablet(s) every day by oral route.10/22/17 filledPRESCRIPTION SOLUTIONSHYDROcodone 10 mg-acetaminophen 325 mg /15/17 filledCaremarkHYDROcodone 5 mg-acetaminophen 325 mg wadyca19/14/17 filledCaremarkHYDROcodone 7.5 mg-acetaminophen 325 mg tktzaa77/16/18 filledPRESCRIPTION SOLUTIONSIophen C-NR 10 mg-100 mg/5 mL oral debeve33/14/16 filledCaremarkKlor-Con 10 mEq tablet,extended release Take 1 tablet(s) every day by oral route.10/09/16 [facility] Wilsonlevothyroxine 175 mcg rertgp47/06/18 filledPRESCRIPTION SOLUTIONSLORazepam 1 mg alircs74/09/18 filledPRESCRIPTION SOLUTIONSmetFORMIN 500 mg ptbfai87/09/18 filledPRESCRIPTION SOLUTIONSmetoprolol tartrate 50 mg tablet Take 1 tablet(s) twice a day by oral route.09/19/17 filledPRESCRIPTION SOLUTIONSnicotine 14 mg/24 hr daily transdermal patch08/05/16 filledCaremarknicotine 21 mg/24 hr daily transdermal patch12/04/16 filledCaremarkNIFEdipine ER 60 mg tablet,extended release 24 hr Take 1 tablet(s) every day by oral route.03/31/17 filledCaremarkNIFEdipine ER 90 mg tablet,extended release 24 hr10/22/17 filledPRESCRIPTION SOLUTIONSNitro-Dur 0.2 mg/hr transdermal 24 hour patch Apply 1 patch(es) every day by transdermal route.10/09/16 [facility] WilsonOsmoPrep 1.5 gram (1.102-0.398) tablet Take 4 tablet(s) by oral route as directed.10/21/16 filledCaremarkpantoprazole 40 HISTORY AND PHYSICAL [id number] KODY SAUCEDOOLL mg tablet,delayed release Take 1 tablet(s) every day by oral route.03/31/17 filledCaremarkpolyethylene glycol 3350 17 gram/dose oral /27/16 filledCaremarkpotassium chloride ER 10 mEq tablet,extended release(part/cryst)09/11/16 filledCaremarkpravastatin 40 mg tablet Take 1 tablet(s) every day by oral route.11/22/16 filledCaremarkQUEtiapine 50 mg /08/16 filledCaremarkSklice 0.5 % uupnnw52/02/17 filledCaremarktraZODone 100 mg yzsthn51/21/17 filledCaremarkvenlafaxine 37.5 mg nwncah28/09/18 filledPRESCRIPTION SOLUTIONSvenlafaxine ER 150 mg capsule,extended release 24 hr Take 1 capsule(s) every day by oral route.10/22/17 filledPRESCRIPTION SOLUTIONSVaccines Reviewed Vaccines Some vaccines listed in Document: #[id number] could not be added to this patient's chart. Please review this document and add these vaccines to the patient's chart manually as needed. Problems Reviewed Problems Intermittent claudication due to atherosclerosis of [place] artery of limb - Onset: 10/30/2017 Aneurysm of iliac artery Abdominal aortic aneurysm Iliac artery occlusion Peripheral vascular disease - Onset: 10/09/2016 Family History Reviewed Family History Father- No current problems or disabilityMother- No current problems or disabilitySocial History Reviewed Social History Cardiology Family history of heart disease?: N Smoking Status: Current every day smoker Smoker (06/19 PPD) High Cholesterol: Y High blood pressure: Y Overweight: N Obese: N Diabetes: Y General stress level: High Alcohol intake: Occasional Diet: Regular Marital status: Tobacco-years of use: 15 Surgical History Reviewed Surgical History Other - 10/25/2016 - EVS AAA repair/ Right iliac artery repair; fem to fem bypass 10/25/16 10/23/16 no PA required for 10/25/16 sx per Akanksha @ [facility]. Ref #: [id number]. 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 HPI Peripheral Vascular Disease Reported by patient. Severity: not limiting Associated Symptoms: no weakness; no numbness; no paresthesias; no skin discoloration; no fever endovascular stent repair with abdominal aortic aneurysm saccular iliac artery aneurysm Claudication about 1 block ROS Patient reports no fever, no night sweats, no significant weight gain, no significant weight loss, and no exercise intolerance; claudication one block. She reports no chest pain, no arm pain on exertion, no shortness of breath when walking, no shortness of breath when lying down, no palpitations, and no known heart murmur; history of myocardial infarction. She reports muscle aches and muscle weakness but reports no arthralgias/joint pain, no back pain, and no swelling in the extremities; no claudication lower extremity. She reports no dry eyes, no irritation, and no vision change. She reports no difficulty hearing and no ear pain. She reports no frequent nosebleeds and no nose/sinus problems. She reports no sore throat, no bleeding gums, no snoring, no dry mouth, no mouth ulcers, no oral abnormalities, and no teeth problems. She reports no jugular vein distension and n o swollen glands. She reports no cough, no wheezing, no shortness of breath, and no coughing up blood. She reports no abdominal pain, no vomiting, normal appetite, no diarrhea, not vomiting blood, no nausea, and no constipation. She reports no incontinenc e , no difficulty urinating, no hematuria, and no increased frequency. She reports no abnormal mole, no jaundice, and no rashes. She reports no loss of consciousness, no weakness, no numbness, no seizures, no dizziness, and no headaches. She reports no depr ession, no sleep disturbances, feeling safe in relationship, and no alcohol abuse. She reports no fatigue. She reports no swollen glands and no bruising. She reports no runny nose, no sinus pressure, no itching, no hives, and no frequent sneezing. ROS as noted in the HPI Physical Exam Patient is a 67-year-old female. Constitutional: General Appearance well nourished and developed and healthy-appearing. Level of Distress NAD. Ambulation ambulating normally. Cardiovascular: Apical Impulse not displaced or no thrill. Heart Auscultation normal s1 and s2; no murmurs, rubs, or gallops; and RRR. Arterial Pulses no abdominal aorta bruits, femoral bruits, or popliteal bruits; femoral diminished (bilateral) and dorsalis pedis diminished(bilateral); and 2+ bilateral, carotid 2+ HISTORY AND PHYSICAL [id number] SAUCEDOKODYOLL bilateral, femoral 2+ bilateral, and popliteal 2+ bilateral. Edema no edema or varicosities. Lungs: Repiratory Effort no dyspnea. Percussion no dullness or flatness and hyperresonance . Auscultation no wheezing, rhonchi, or rales / crackles and breathing sounds normal, good air movement, and CTA except as noted. Abdomen: Bowl Sounds normal. Inspection and Palpation no tenderness, guarding, masses, or rebound tenderness and soft and non-distended. Liver non-tender and no hepatomegaly. Spleen non-tender and no splenomegaly. Hernia none palpable. Musculoskeletal System: Gait And Stance normal gait and stance. Digits and Nails normal nails and no cyanosis. Neurologic: Cranial Nerves grossly intact. Reflexes DTRs 2+ bilaterally throughout. Sensation grossly intact. Lymph Nodes: Lymph Nodes no cervical LAD, supraclavicular LAD, axillary LAD, or inguinal LAD. Eyes: Lids and Conjunctivae no discharge or pallor and non-injected. Pupils PERRLA. Cornea grossly intact. EOM EOMI. Lens clear. Sclera non-icteric. Neck: Neck no masses or enlarged lymph nodes and supple, trachea midline, and carotid bruits. Thyroid no enlargement or nodules and non-tender. Skin: Inspection and Palpation no rash, lesions, ulcers, jaundice, or abnormal nevi. Assessment / Plan an ascending aortic ectasia 4 cm in diameter and descending thoracic aneurysm 5 cm in diameter Right external iliac artery stenosis 1. Iliac artery occlusion I74.5: Embolism and thrombosis of iliac artery Discussion Notes the patient would benefit from a covered stent in the right external iliac artery. I have discussed her disease process with her in detail as well as the alternative methods of treatment we discussed endovascular stent repair of her right external iliac a rtery including the expected benefits and risks which include bleeding, infection, stroke, , and the imponderables. She understands all of the above and would like to proceed with planned surgery. OTIS GARCIA MD at 1619 CC: [id number] DICTATION DATE: 12/11/17 1130 HEALTH UNDERWRITER: TATYANA 12/26/17 1430 [facility] [address] [place] [address]
[~2018-01-06 05:07] MED LIST changes: -ASPIRIN81 MG PO
[2018-01-07] VITALS (12 sets, daily range): BP systolic 121–160; BP diastolic 67–82
[2018-01-07 06:52] LABS: MCH 28.9 pg (26.0-34.0); MCV 90.3 fL (80.0-100.0); MEAN PLATELET VOLUME 9.6 fL (7.4-10.4); RDW 14.6 % (11.5-14.5); WBC 8.2 10x3/uL (4.8-10.8)
[2018-01-07 06:55] LABS: HEMATOCRIT 29.7 % (36.0-48.0); HEMOGLOBIN 9.5 g/dL (12-16); RBC 3.29 10x6/uL (4.00-5.40)
[2018-01-07 07:28] LABS: BILIRUBIN - TOTAL 0.16 mg/dL (0.2-1.3); CARBON DIOXIDE 27.6 mmol/L (21.0-32.0); CREATININE - SERUM 0.9 mg/dL (0.6-1.3); POTASSIUM - SERUM 3.6 mmol/L (3.5-5.1)
[2018-01-07 07:30] LABS: ALBUMIN 2.6 g/dL (3.4-5.0); PROTEIN - SERUM 5.4 g/dL (6.4-8.2)
[2018-01-07] MEDS ORDERED: ASPIRIN81 MG PO (09:38)
[2018-01-07] MEDS ORDERED: HYDROCODONE-APA1 TAB PO (09:45)
== END 2018-01-07 11:45 | disposition home or self-care (01) ==
LOC: D.OPS 05:07 → D.CVICU 05:07 → D.PAN 07:30 → D.OPS 07:30 → D.CVICU 09:58 → D.OPS 01-07 11:45
PROVIDERS: Internal Medicine Cardiovascular Disease
DX: I70.211 Atherosclerosis of native arteries of extremities with intermittent claudication, right leg (principal); I74.5 Embolism and thrombosis of iliac artery; I25.10 Atherosclerotic heart disease of native coronary artery without angina pectoris; E11.9 Type 2 diabetes mellitus without complications; I10 Essential (primary) hypertension; E78.5 Hyperlipidemia, unspecified; E07.9 Disorder of thyroid, unspecified; F17.210 Nicotine dependence, cigarettes, uncomplicated; Z01.812 Encounter for preprocedural laboratory examination

== ENCOUNTER 2019-02-12 09:00 | Outpatient (CLI) | payer MEDICARE, MEDICAID ==
[2018-01-06 10:09] VITALS: BMI 25.1
[~2019-02-12 09:00] MED LIST changes: +ASPIRIN81 MG PO
== END 2019-02-12 10:00 | disposition home or self-care (01) ==
LOC: D.MAMMO 09:00
PROVIDERS: ATTEND Emergency Medicine
DX: Z12.31 Encounter for screening mammogram for malignant neoplasm of breast (principal)

== ENCOUNTER 2019-12-07 16:04 | Inpatient (IN) | payer MEDICARE, MEDICAID ==
[~2019-12-07] VITALS: Ht 152.4 cm; Wt 73.0 kg
--- NOTE | 2019-12-07 16:29 | NUR ---
URINE SENT TO LAB AT THIS TIME.
[2019-12-07 16:45] LABS: BASOPHILS 0.4 % (0-2); EOSINOPHILS 0.5 % (0-7); HEMATOCRIT 37.6 % (36.0-48.0); HEMOGLOBIN 11.3 g/dL (12-16); IMMATURE GRANULOCYTES 0.6 % (0-5); LYMPHOCYTES 6.9 % (15-50); MCH 24.2 pg (26.0-34.0); MCHC 30.1 g/dL (31.0-37.0); MCV 80.7 fL (80.0-100.0); MEAN PLATELET VOLUME 9.5 fL (7.4-10.4); MONOCYTES 5.5 % (2-11); NEUTROPHILS 86.1 % (40-80); RBC 4.66 10x6/uL (4.00-5.40); RDW 29.4 % (11.5-14.5)
[2019-12-07 16:50] LABS: PLATELET COUNT 531 10x3/uL (130-400)
[2019-12-07 17:01] LABS: ANION GAP 16.4 mmol/L (8-16); CALCIUM 10.2 mg/dL (8.5-10.1); CARBON DIOXIDE 24.1 mmol/L (21.0-32.0); CREATININE - SERUM 1.3 mg/dL (0.6-1.3); POTASSIUM - SERUM 3.5 mmol/L (3.5-5.1)
[2019-12-07 17:06] LABS: BILIRUBIN NEGATIVE (NEGATIVE); EPITHELIAL CELLS 0-5 /hpf (0-5); GLUCOSE NEGATIVE (NEGATIVE); KETONE NEGATIVE (NEGATIVE); NITRITE POSITIVE (NEGATIVE); RED CELLS - URINE 25-50 /hpf (0-5); UROBILINOGEN NORMAL (NORMAL); WHITE CELLS - URINE >50 /hpf (NEGATIVE)
[2019-12-07 17:07] LABS: ALBUMIN 3.6 g/dL (3.4-5.0); BILIRUBIN - TOTAL 0.34 mg/dL (0.2-1.3); PROTEIN - SERUM 8.1 g/dL (6.4-8.2)
[2019-12-07 17:07] LABS: BACTERIA MODERATE /hpf (NEGATIVE)
[2019-12-07 18:09] VITALS: BP 150/75
--- NOTE | 2019-12-07 20:25 | NUR ---
PT AMBULATED INDEPENDENTLY TO THE RESTROOM
--- NOTE | 2019-12-07 22:05 | NUR ---
BY WC TO BED LOW AND LOCKED BP NOTED HIGH NEEDS SEEN TO AT THIS TIME PT REPORTS NO ABD PAIN
[2019-12-07 23:58] VITALS: BP 181/100
[2019-12-08 01:16] VITALS: Ht 152.4 cm; Wt 73.0 kg
[2019-12-08 01:41] LABS: CKMB 1.1 U/L (0.0-3.6); CREATINE KINASE 27 UL (21-215); TROPONIN-I 0.041 ng/mL (0.000-0.060)
[2019-12-08 04:05] VITALS: BP 158/95
--- NOTE | 2019-12-08 07:30 | NUR ---
REPORT RECIEVED. PT SITTING UP IN BED. RR EVEN AND UNLABORED ON RA. SHE HAS A R AC PIV THAT IS SL. BED LOCKED AND IN LOWEST POSITION,CALL LIGHT WITHIN REACH. WILL CTM
[2019-12-08 08:11] VITALS: BP 134/83
[2019-12-08 09:39] LABS: APTT 33.7 SECONDS (22.8-39.4); INR 0.99 (0.85-1.17); PROTIME 13.1 SECONDS (11.6-15.0)
[2019-12-08 09:40] LABS: D-DIMER-QUANTITATIVE 2.02 ug/mLFEU (0.20-0.54)
[2019-12-08 09:47] LABS: BASOPHILS 1.1 % (0-2); EOSINOPHILS 1.6 % (0-7); HEMATOCRIT 32.9 % (36.0-48.0); HEMOGLOBIN 9.9 g/dL (12-16); IMMATURE GRANULOCYTES 0.5 % (0-5); LYMPHOCYTES 15.2 % (15-50); MCHC 30.1 g/dL (31.0-37.0); MCV 79.9 fL (80.0-100.0); MEAN PLATELET VOLUME 9.9 fL (7.4-10.4); NEUTROPHILS 74.6 % (40-80); PLATELET COUNT 504 10x3/uL (130-400); RBC 4.12 10x6/uL (4.00-5.40); RDW 29.8 % (11.5-14.5); WBC 11.5 10x3/uL (4.8-10.8)
[2019-12-08 09:49] LABS: CALC OSMOLALITY 271 mosm/kg (275-300); CALCIUM 9.4 mg/dL (8.5-10.1); CHLORIDE - SERUM 101 mmol/L (98-107); CREATINE KINASE 40 UL (21-215); GLUCOSE 155 mg/dL (74-106); LDH 185 U/L (81-234); MAGNESIUM - SERUM 1.7 mg/dL (1.8-2.4); SODIUM 135 mmol/L (136-145); TROPONIN-I 0.041 ng/mL (0.000-0.060); UREA NITROGEN 11 mg/dL (7-18); eGFR NON AFRICAN AMERICAN 76 mL/min (90-120)
[2019-12-08 09:52] LABS: CREATININE - SERUM 0.8 mg/dL (0.6-1.3)
[2019-12-08 09:53] LABS: POTASSIUM - SERUM 3.4 mmol/L (3.5-5.1)
[2019-12-08 11:42] VITALS: BP 171/98
[2019-12-08 12:31] LABS: CREATINE KINASE 21 UL (21-215); TROPONIN-I 0.051 ng/mL (0.000-0.060)
[2019-12-08 13:50] LABS: UDS - AMPHET NEGATIVE QUAL (NEGATIVE); UDS - BARB NEGATIVE QUAL (NEGATIVE); UDS - BENZO NEGATIVE QUAL (NEGATIVE); UDS - COCAINE NEGATIVE QUAL (NEGATIVE); UDS - OPIATE NEGATIVE QUAL (NEGATIVE); UDS - PCP NEGATIVE QUAL (NEGATIVE); UDS - THC POSITIVE QUAL (NEGATIVE)
--- NOTE | 2019-12-08 14:00 | NUR ---
I have reviewed this patient and I concur with the Shift Assessment completed by the Licensed Practical Nurse today this shift.
[2019-12-08 14:56] VITALS: BP 177/108
--- NOTE | 2019-12-08 19:30 | NUR ---
PT IN BED, AAO X 3, RESP EVEN AND UNLABORED. NO DISTRESS NOTED, CL IN REACH, SR UP X 2. NO CONCERNS OR WANTS NOTED AT THIS TIME.
[2019-12-08 20:48] VITALS: BP 165/103
[2019-12-09 00:48] VITALS: BP 179/96
--- NOTE | 2019-12-09 03:41 | NUR ---
I have reviewed this patient and I concur with the Shift Assessment completed by the Licensed Practical Nurse today this shift.
[2019-12-09 06:00] VITALS: BP 153/99
[2019-12-09 06:49] LABS: ANION GAP 12.6 mmol/L (8-16); CALCIUM 8.9 mg/dL (8.5-10.1); CREATININE - SERUM 0.9 mg/dL (0.6-1.3); MAGNESIUM - SERUM 1.6 mg/dL (1.8-2.4); POTASSIUM - SERUM 3.6 mmol/L (3.5-5.1)
[2019-12-09 07:22] LABS: BASOPHILS 1.1 % (0-2); EOSINOPHILS 2.5 % (0-7); HEMOGLOBIN 9.8 g/dL (12-16); IMMATURE GRANULOCYTES 0.6 % (0-5); LYMPHOCYTES 16.1 % (15-50); MCH 24.6 pg (26.0-34.0); MCHC 30.6 g/dL (31.0-37.0); MCV 80.2 fL (80.0-100.0); MEAN PLATELET VOLUME 9.4 fL (7.4-10.4); MONOCYTES 7.7 % (2-11); PLATELET COUNT 441 10x3/uL (130-400); RBC 3.99 10x6/uL (4.00-5.40); WBC 9.4 10x3/uL (4.8-10.8)
--- NOTE | 2019-12-09 07:44 | NUR ---
REPORT RECIEVED. PT SITTING SEMI FOWLERS IN BED. RR EVEN AND UNLABORED ON RA. PT HAS A R AC THAT IS SL. BED LOCKED AND IN LOWEST POSITION, CALL LIGHT WITHIN REACH. WILL CTM
[2019-12-09 08:11] VITALS: BP 134/84
[2019-12-09 12:13] VITALS: BP 158/96
[2019-12-09 12:17] LABS: PLATELET ESTIMATE INCREASED
[2019-12-09 12:18] LABS: ROULEAUX OCC
--- NOTE | 2019-12-09 13:14 | MORECARE ---
CASE MANAGEMENT DISCHARGE SUMMARY PATIENT: KODY SAUCEDO UNIT: [id number] ADM DATE: 12/07/19 AGE: 69 : 54 SEX: F ROOM/BED: D.0681 AUTHOR: WILI,DOC PHYSICIAN: REFERRING PHYSICIAN: DELIO KRUSE MD DATE OF SERVICE: 12/09/19 Discharge Plan Patient Name: KODY SAUCEDO Facility: [facility]:[place] : 1950 Planned Disposition: Home Anticipated Discharge Date: Discharge Date: Expected LOS: Initial Reviewer: [email or web address] Initial Review Date: 12/09/2019 Generated: 12/09/19 2:14 pm Comments DCP- Discharge Planning Updated by [email or web address]: Sonam Tai on 12/09/19 12:[address] Patient Name: KODY SAUCEDO Admission Status: ER Accout number: [id number] Admission Date: 12-07-2019 : 1950 Admission Diagnosis: Attending: URIAH, Current LOS: 2 Anticipated DC Date: Planned Disposition: Home Primary Insurance: [facility] [employer] [employer] Discharge Planning Comments: CM met with patient to complete initial dc planning assessment. CM educated patient on the CM role and verbal consent given by patient to complete assessment. Patient lives in an apartment alone. At discharge patient plans to return and feels this is a safe discharge. CM discussed availability of home health, rehab services, and medical equipment. Patient denied known discharge needs at this time. States her daughter will pick her up on discharge. CM will continue to follow and will assist as needed with dc plans/needs. [employer]: Sonam Tai DCPIA - Discharge Planning Initial Assessment Updated by [email or web address]: Sonam Tai on 12/09/19 1:11 pm * Is the patient Alert and Oriented? Yes * How many steps to enter\exit or inside your home? 0/0 * PCP Dr. Mock * Pharmacy [facility] * Preadmission Environment Home Alone * ADLs Independent * Equipment Cane * List name and contact numbers for known caregivers / representatives who currently or will assist patient after discharge: Manuela Eagle [facility] - [phone] * Verbal permission to speak to the caregivers and representatives has been obtained from the patient. Yes * Community resources currently utilized None * Additional services required to return to the preadmission environment? No * Can the patient safely return to the preadmission environment? Yes * Has this patient been hospitalized within the prior 30 days at any hospital? No Patient Name: KODY SAUCEDO Page [id number] at 1314 All edits/amendments must be made on the electronic document DICTATION DATE: 12/09/191313 CHINESE TEACHER: TATYANA 12/09/194 RPT#: [id number] DC DATE: STATUS: ADM IN [facility] [address] [place] [address] END OF REPORT
[2019-12-09] MEDS ORDERED: CIPRO250 MG PO (14:09)
--- NOTE | 2019-12-09 15:00 | NUR ---
I have reviewed this patient and I concur with the Shift Assessment completed by the Licensed Practical Nurse today this shift.
--- NOTE | 2019-12-09 16:04 | NUR ---
DC PAPERWORK GONE OVER AND SIGNED WITH PT. ALL QUESTIONS ANSWERED. PIV REMOVED, CATH TIP FULLY INTACT. TELEMETRY REMOVED AND RETURNED TO STRAP FOLDING MACHINE OPERATOR. ALL VALUBLES TAKEN WITH PT. PTS SON TO TAKE PT HOME.
== END 2019-12-09 16:23 | disposition home or self-care (01) | DRG 690 ==
LOC: D.ER 16:04 → D.M2 20:55
PROVIDERS: Family Medicine; ADMIT Family Medicine; ATTEND Family Medicine
DX: N39.0 Urinary tract infection, site not specified (principal); F17.213 Nicotine dependence, cigarettes, with withdrawal; I71.4 Abdominal aortic aneurysm, without rupture; I25.10 Atherosclerotic heart disease of native coronary artery without angina pectoris; D64.9 Anemia, unspecified; E83.52 Hypercalcemia; I73.9 Peripheral vascular disease, unspecified; J44.9 Chronic obstructive pulmonary disease, unspecified; E11.65 Type 2 diabetes mellitus with hyperglycemia; E03.9 Hypothyroidism, unspecified; I10 Essential (primary) hypertension; M19.90 Unspecified osteoarthritis, unspecified site; F12.90 Cannabis use, unspecified, uncomplicated; F41.8 Other specified anxiety disorders; D72.829 Elevated white blood cell count, unspecified

== ENCOUNTER 2020-02-01 00:41 | Emergency (ER) | payer MEDICARE, MEDICAID ==
[~2020-02-01] VITALS: Ht 172.7 cm; Wt 75.0 kg
[~2020-02-01 00:41] MED LIST changes: +CIPRO250 MG PO
[2020-02-01 00:46] VITALS: Ht 172.7 cm; Wt 75.0 kg
[2020-02-01 01:11] LABS: BASOPHILS 1.4 % (0-2); EOSINOPHILS 2.5 % (0-7); HEMATOCRIT 32.7 % (36.0-48.0); HEMOGLOBIN 10.4 g/dL (12-16); IMMATURE GRANULOCYTES 1.6 % (0-5); LYMPHOCYTES 30.2 % (15-50); MCH 27.3 pg (26.0-34.0); MCHC 31.8 g/dL (31.0-37.0); MCV 85.8 fL (80.0-100.0); MEAN PLATELET VOLUME 9.4 fL (7.4-10.4); MONOCYTES 8.1 % (2-11); NEUTROPHILS 56.2 % (40-80); PLATELET COUNT 375 10x3/uL (130-400); RBC 3.81 10x6/uL (4.00-5.40); RDW 17.9 % (11.5-14.5); WBC 11.1 10x3/uL (4.8-10.8)
[2020-02-01 01:19] LABS: ANION GAP 15.3 mmol/L (8-16); CALCIUM 8.5 mg/dL (8.5-10.1); CARBON DIOXIDE 22.9 mmol/L (21.0-32.0); CREATININE - SERUM 0.9 mg/dL (0.6-1.3); POTASSIUM - SERUM 3.2 mmol/L (3.5-5.1)
[2020-02-01 01:33] LABS: ALBUMIN 3.3 g/dL (3.4-5.0); BILIRUBIN - TOTAL 0.15 mg/dL (0.2-1.3); MAGNESIUM - SERUM 1.9 mg/dL (1.8-2.4); PROTEIN - SERUM 6.8 g/dL (6.4-8.2); THYROID STIMULATING HORMONE 0.72 uIU/mL (0.36-3.74); TROPONIN-I 0.054 ng/mL (0.000-0.060)
[2020-02-01 01:56] LABS: BILIRUBIN NEGATIVE (NEGATIVE); GLUCOSE NEGATIVE (NEGATIVE); KETONE NEGATIVE (NEGATIVE); NITRITE NEGATIVE (NEGATIVE); UROBILINOGEN NORMAL (NORMAL)
[2020-02-01 02:04] LABS: UDS - AMPHET NEGATIVE QUAL (NEGATIVE); UDS - BARB NEGATIVE QUAL (NEGATIVE); UDS - BENZO NEGATIVE QUAL (NEGATIVE); UDS - COCAINE NEGATIVE QUAL (NEGATIVE); UDS - OPIATE NEGATIVE QUAL (NEGATIVE); UDS - PCP NEGATIVE QUAL (NEGATIVE); UDS - THC POSITIVE QUAL (NEGATIVE)
[2020-02-01 03:10] VITALS: BP 148/78
== END 2020-02-01 03:21 | disposition short-term general hospital (02) ==
LOC: D.ER 00:41
PROVIDERS: Family Medicine
DX: F10.129 Alcohol abuse with intoxication, unspecified (principal); Y90.9 Presence of alcohol in blood, level not specified; S06.5X9A Traumatic subdural hemorrhage with loss of consciousness of unspecified duration, initial encounter; S06.6X9A Traumatic subarachnoid hemorrhage with loss of consciousness of unspecified duration, initial encounter; S02.19XA Other fracture of base of skull, initial encounter for closed fracture; W19.XXXA Unspecified fall, initial encounter; Y93.9 Activity, unspecified; Y92.9 Unspecified place or not applicable; E11.9 Type 2 diabetes mellitus without complications; I10 Essential (primary) hypertension; I25.2 Old myocardial infarction; J44.9 Chronic obstructive pulmonary disease, unspecified; Z79.84 Long term (current) use of oral hypoglycemic drugs; R51 Headache

== ENCOUNTER 2020-03-28 14:23 | Emergency (ER) | payer MEDICARE, MEDICAID ==
[~2020-03-28] VITALS: Ht 172.7 cm; Wt 79.6 kg
[2020-03-28 14:27] VITALS: Ht 172.7 cm; Wt 79.6 kg
[2020-03-28 14:53] LABS: BASOPHILS 0.7 % (0-2); EOSINOPHILS 1.9 % (0-7); HEMATOCRIT 33.8 % (36.0-48.0); HEMOGLOBIN 10.8 g/dL (12-16); IMMATURE GRANULOCYTES 0.6 % (0-5); LYMPHOCYTES 18.5 % (15-50); MCH 26.4 pg (26.0-34.0); MCV 82.6 fL (80.0-100.0); MEAN PLATELET VOLUME 9.8 fL (7.4-10.4); MONOCYTES 11.3 % (2-11); PLATELET COUNT 303 10x3/uL (130-400); RBC 4.09 10x6/uL (4.00-5.40); RDW 16.4 % (11.5-14.5)
[2020-03-28 15:01] LABS: INR 1.07 (0.85-1.17); PROTIME 13.8 SECONDS (11.6-15.0)
[2020-03-28 15:02] LABS: APTT 30.3 SECONDS (22.8-39.4)
[2020-03-28 15:29] LABS: NITRITE NEGATIVE (NEGATIVE)
[2020-03-28 15:30] LABS: BILIRUBIN NEGATIVE (NEGATIVE); KETONE NEGATIVE (NEGATIVE); UROBILINOGEN NORMAL mg/dL (< 2)
[2020-03-28 15:47] LABS: UDS - AMPHET POSITIVE QUAL (NEGATIVE); UDS - BARB NEGATIVE QUAL (NEGATIVE); UDS - BENZO NEGATIVE QUAL (NEGATIVE); UDS - COCAINE NEGATIVE QUAL (NEGATIVE); UDS - OPIATE NEGATIVE QUAL (NEGATIVE); UDS - PCP NEGATIVE QUAL (NEGATIVE); UDS - THC POSITIVE QUAL (NEGATIVE)
[2020-03-28 16:23] LABS: ALBUMIN 3.2 g/dL (3.4-5.0); ALKALINE PHOSPHATASE 78 U/L (30-120); ALT (SGPT) 10 U/L (10-68); BILIRUBIN - TOTAL 0.42 mg/dL (0.2-1.3); CALC OSMOLALITY 267 mosm/kg (275-300); CALCIUM 9.4 mg/dL (8.5-10.1); CARBON DIOXIDE 27.3 mmol/L (21.0-32.0); CHLORIDE - SERUM 100 mmol/L (98-107); CKMB 2.3 U/L (0.0-3.6); CREATINE KINASE 72 UL (21-215); CREATININE - SERUM 0.9 mg/dL (0.6-1.3); GLUCOSE 115 mg/dL (74-106); MAGNESIUM - SERUM 1.6 mg/dL (1.8-2.4); POTASSIUM - SERUM 3.5 mmol/L (3.5-5.1); PROTEIN - SERUM 7.1 g/dL (6.4-8.2); SODIUM 134 mmol/L (136-145); THYROID STIMULATING HORMONE 0.03 uIU/mL (0.36-3.74); UREA NITROGEN 11 mg/dL (7-18); eGFR NON AFRICAN AMERICAN 66 mL/min (90-120)
== END 2020-03-28 16:46 | disposition left against medical advice (07) ==
LOC: D.ER 14:23
PROVIDERS: Family Medicine
DX: R40.4 Transient alteration of awareness (principal); I11.0 Hypertensive heart disease with heart failure; I50.9 Heart failure, unspecified; I25.2 Old myocardial infarction; J44.9 Chronic obstructive pulmonary disease, unspecified; E11.9 Type 2 diabetes mellitus without complications; Z79.84 Long term (current) use of oral hypoglycemic drugs; Z72.0 Tobacco use; F19.10 Other psychoactive substance abuse, uncomplicated; Z53.29 Procedure and treatment not carried out because of patient's decision for other reasons